=== PATIENT | female | born 1995 | race African-American/Black ===

== ENCOUNTER 2019-05-31 04:00 | Inpatient (IN) ==
[2019-05-31] MEDS ORDERED: *HR* Nalbuphine 10 MG/ML AMPUL IVP PRN (04:56)
[2019-05-31] MEDS ORDERED: Metoclopramide 10 MG/2 ML VIAL IVP PRN (04:56)
[2019-05-31] MEDS ORDERED: Lidocaine 1% 20 ML MDV INFILT PRN (04:56)
[2019-05-31] MEDS ORDERED: Famotidine 20 MG/2 ML VIAL IVP PRN (04:56)
[2019-05-31] MEDS ORDERED: Penicillin G Potassium 5,000,000 UNIT in 0.9 % Sodium Chloride Mini Bag 100 ML IVPB ONE (04:56)
[2019-05-31] MEDS ORDERED: Ondansetron 4 MG/2 ML VIAL IVP PRN (04:56)
[2019-05-31] MEDS ORDERED: Naloxone 0.4 MG/ML INJ IVP PRN (04:56)
[2019-05-31] MEDS ORDERED: Oxytocin 20 units/ LR 1000 mL 20 UNIT/1,000 ML BAG IVC SCH (05:00)
[2019-05-31] MEDS ORDERED: miSOPROStoL 25 MCG TABLET PO PRN (05:29)
[2019-05-31 05:31] LABS: Basophils % 0.2 %; Eosinophils # 0.2 K/mcL (0.0-0.6); Eosinophils % 1.8 %; Hematocrit 38.5 % (35.3-44.9); Hemoglobin 13.1 g/dL (11.5-15.4); Immature Granulocytes % 0.4 % (0-4); Lymphocytes % 20.6 %; Mean Corpuscular Hemoglobin 29.8 pg (28.0-33.3); Mean Corpuscular Volume 87.7 fL (83.0-100.0); Mean Platelet Volume 11.6 fL (9.4-12.4); Monocytes # 0.8 K/mcL (0.0-1.3); Monocytes % 8.7 %; Neutrophils # 6.5 K/mcL (1.6-8.9); Platelet Count 197 K/mcL (140-400); Red Blood Count 4.39 M/mcL (3.82-4.97); Red Cell Distribution Width 14.2 % (11.5-14.5); Segmented Neutrophils % 68.3 %; White Blood Count 9.5 K/mcL (4.3-11.1)
[2019-05-31 05:41] LABS: Amphetamine Screen,Urine Negative ng/mL (Cutoff=1000); Barbiturate Screen,Urine Negative ng/mL (Cutoff=200); Benzodiazepines Screen,Urine Negative ng/mL (Cutoff=200); Cannabinoid Screen,Urine Negative ng/mL (Cutoff = 50); Cocaine Screen,Urine Negative ng/mL (Cutoff= 300); Opiate Screen,Urine Negative ng/mL (Cutoff=300); Phencyclidine Screen,Urine Negative ng/mL (Cutoff=25)
[2019-05-31] MEDS: Ringers Solution, Lactated 1,000 ML IVC SCH ×3 (05:56→18:45)
[2019-05-31] MEDS: Penicillin G Potassium 2,500,000 UNIT in 0.9 % Sodium Chloride 100 ML IVPB SCH ×3 (10:23→18:45)
[2019-05-31] MEDS ORDERED: Ropivacaine/PF 0.2% 20 ML VIAL EP ONE (15:50)
[2019-05-31] MEDS ORDERED: *HR* FentaNYL (PF) 100 MCG/2 ML VIAL EP ONE (15:50)
[2019-05-31] MEDS ORDERED: Epidural Premix (fent/bupiv) 110 ML EP ONE (15:59)
[2019-05-31] MEDS: Epidural Premix (fent/bupiv) 110 ML EP SCH (23:31)
[2019-05-31] MEDS ORDERED: Acetaminophen 325 MG TABLET PO ONE (23:34)
[2019-06-01] MEDS ORDERED: MetroNIDAZOLE 500 MG/100 ML 500 MG/100 ML BAG IVPB ONE (02:15)
[2019-06-01] MEDS ORDERED: ceFAZolin 2,000 MG in Water for inj. (sterile) 20 ML IVP ONE (02:15)
[2019-06-01] MEDS ORDERED: Acetaminophen IV 1,000 MG/100 ML INFUS..BTL IVPB ONE (02:16)
[2019-06-01] MEDS ORDERED: Ondansetron 4 MG/2 ML VIAL IVP PRN ×2 (02:16→07:14)
[2019-06-01] MEDS ORDERED: *HR* HYDROmorphone (PF) 1 MG/ML SYRINGE IVP PRN (02:16)
[2019-06-01] MEDS ORDERED: *HR* Oxytocin 10 UNIT/ML VIAL IM ONE (02:26)
[2019-06-01] MEDS ORDERED: *HR* Morphine Sulfate/PF 10 MG/10 ML AMPUL ONE (02:55)
[2019-06-01] MEDS ORDERED: Metoclopramide 10 MG/2 ML VIAL IVP PRN (07:14)
[2019-06-01] MEDS ORDERED: Simethicone 80 MG TAB.CHEW PO PRN (07:14)
[2019-06-01] MEDS ORDERED: Sennosides 8.6 MG TABLET PO PRN (07:14)
[2019-06-01] MEDS: Oxytocin 20 units/ LR 1000 mL 20 UNIT/1,000 ML BAG IVC SCH ×2 (07:53→12:46)
[2019-06-01] MEDS: Prenatal Vit/FA 1 EACH TABLET PO SCH (08:30)
[2019-06-01] MEDS: metroNIDAZOLE 500 MG TABLET PO SCH ×3 (08:30→20:20)
[2019-06-01] MEDS: ceFAZolin 2,000 MG in Water for inj. (sterile) 10 ML IVP SCH ×2 (08:31→14:54)
[2019-06-01] MEDS: Ibuprofen 600 MG TABLET PO PRN ×3 (08:35→22:10)
[2019-06-01] MEDS: Ringers Solution, Lactated 1,000 ML IVC SCH (12:46)
[2019-06-01] MEDS: Epidural Premix (fent/bupiv) 110 ML EP SCH (12:47)
[2019-06-01] MEDS: Penicillin G Potassium 2,500,000 UNIT in 0.9 % Sodium Chloride 100 ML IVPB SCH (12:47)
[2019-06-01] MEDS: *HR* OxyCODONE/APAP 5/325 TABLET PO PRN (20:19)
[2019-06-02] MEDS: ceFAZolin 2,000 MG in Water for inj. (sterile) 10 ML IVP SCH (00:32)
[2019-06-02] MEDS: Ibuprofen 600 MG TABLET PO PRN ×2 (04:18→18:10)
[2019-06-02 07:09] LABS: Basophils % 0.2 %; Eosinophils # 0.3 K/mcL (0.0-0.6); Eosinophils % 2.4 %; Hematocrit 29.6 % (35.3-44.9); Immature Granulocytes % 0.4 % (0-4); Lymphocytes # 1.9 K/mcL (0.6-4.6); Lymphocytes % 16.1 %; Mean Corpuscular HGB Conc 33.4 g/dL (31.6-35.5); Mean Corpuscular Hemoglobin 29.6 pg (28.0-33.3); Mean Corpuscular Volume 88.4 fL (83.0-100.0); Mean Platelet Volume 11.6 fL (9.4-12.4); Monocytes # 0.9 K/mcL (0.0-1.3); Monocytes % 7.6 %; Neutrophils # 8.5 K/mcL (1.6-8.9); Platelet Count 163 K/mcL (140-400); Red Blood Count 3.35 M/mcL (3.82-4.97); Red Cell Distribution Width 14.2 % (11.5-14.5); Segmented Neutrophils % 73.3 %; White Blood Count 11.6 K/mcL (4.3-11.1)
[2019-06-02 07:13] LABS: Hemoglobin 9.9 g/dL (11.5-15.4)
[2019-06-02] MEDS: metroNIDAZOLE 500 MG TABLET PO SCH ×3 (10:39→19:56)
[2019-06-02] MEDS: Prenatal Vit/FA 1 EACH TABLET PO SCH (10:40)
[2019-06-02] MEDS: *HR* OxyCODONE/APAP 5/325 TABLET PO PRN ×2 (13:53→19:55)
[2019-06-03] MEDS: Ibuprofen 600 MG TABLET PO PRN ×2 (02:32→10:02)
[2019-06-03 08:08] VITALS: BP 127/71
[2019-06-03] MEDS: Prenatal Vit/FA 1 EACH TABLET PO SCH (10:02)
== END 2019-06-03 11:30 | disposition home or self-care (01) | DRG 787 ==
LOC: 1NENULAB 04:09 → 1NENUOBS 06-01 06:25
PROVIDERS: ADMIT Obstetrics & Gynecology; ATTEND Student in an Organized Health Care Education/Training Program

== ENCOUNTER 2021-12-30 05:44 | Inpatient (IN) ==
[2021-12-30] MEDS ORDERED: Metoclopramide 10 MG/2 ML VIAL IVP ONE (05:50)
[2021-12-30] MEDS ORDERED: Famotidine 20 MG/2 ML VIAL IVP ONE (05:50)
[2021-12-30] MEDS ORDERED: Ringers Solution, Lactated 1,000 ML IVC ONE (05:50)
[2021-12-30] MEDS ORDERED: CeFAZolin 2,000 MG/120 ML BAG IVPB ONE (05:50)
[2021-12-30 06:39] LABS: Basophils % 0.2 %; Eosinophils # 0.2 K/mcL (0.0-0.6); Eosinophils % 2.5 %; Hematocrit 38.9 % (35.3-44.9); Hemoglobin 12.6 g/dL (11.5-15.4); Immature Granulocytes % 0.6 % (0-4); Lymphocytes # 2.5 K/mcL (0.6-4.6); Lymphocytes % 28.7 %; Mean Corpuscular HGB Conc 32.4 g/dL (31.6-35.5); Mean Corpuscular Volume 89.4 fL (83.0-100.0); Mean Platelet Volume 10.9 fL (9.4-12.4); Monocytes # 0.8 K/mcL (0.0-1.3); Monocytes % 8.9 %; Neutrophils # 5.2 K/mcL (1.6-8.9); Platelet Count 178 K/mcL (140-400); Red Blood Count 4.35 M/mcL (3.82-4.97); Red Cell Distribution Width 14.4 % (11.5-14.5); Segmented Neutrophils % 59.1 %; White Blood Count 8.8 K/mcL (4.3-11.1)
[2021-12-30] MEDS ORDERED: Ondansetron 4 MG/2 ML VIAL IVP PRN ×2 (06:44→12:20)
[2021-12-30] MEDS ORDERED: *HR* Labetalol 20 MG/4 ML SYRINGE IVP PRN (06:44)
[2021-12-30] MEDS ORDERED: *HR* HYDROmorphone PF 0.5 MG/0.5 ML SYRINGE IVP PRN (06:44)
[2021-12-30] MEDS ORDERED: *HR* Midazolam HCl 2 MG/2 ML VIAL ONE (07:08)
[2021-12-30] MEDS ORDERED: *HR* FentaNYL (PF) 100 MCG/2 ML VIAL ONE (07:08)
[2021-12-30] MEDS ORDERED: *HR* HYDROMORPHONE 2 MG/ML VIAL ONE (07:08)
[2021-12-30] MEDS ORDERED: EPHEDrine 50 MG/ML VIAL ONE (07:08)
[2021-12-30] MEDS ORDERED: Acetaminophen IV 1,000 MG/100 ML BAG IVPB ONE (07:09)
[2021-12-30] MEDS ORDERED: Ringers Solution, Lactated 1,000 ML ONE (07:09)
[2021-12-30] MEDS ORDERED: *HR* Phenylephrine 10 MG/ML VIAL ONE (07:11)
[2021-12-30] MEDS ORDERED: Ondansetron 4 MG/2 ML VIAL ONE (07:11)
[2021-12-30] MEDS ORDERED: *HR* Oxytocin 10 UNIT/ML VIAL ONE (07:19)
[2021-12-30] MEDS ORDERED: Ketorolac 30 MG/ML VIAL ONE (07:19)
[2021-12-30] MEDS ORDERED: Ringers Solution, Lactated 1,000 ML IVC SCH (07:30)
[2021-12-30] MEDS ORDERED: 0.9 % Sodium Chloride 2,000 ML ONE (07:56)
[2021-12-30] MEDS ORDERED: Oxytocin 30 UNIT/503 ML BAG IVC ONE (08:11)
[2021-12-30] MEDS ORDERED: Promethazine 6.25 MG in Water for inj. (sterile) 20 ML IVPB PRN (08:17)
[2021-12-30 09:55] LABS: Amphetamine Screen,Urine Negative ng/mL (Cutoff=1000); Barbiturate Screen,Urine Negative ng/mL (Cutoff=200); Benzodiazepines Screen,Urine Negative ng/mL (Cutoff=200); Cannabinoid Screen,Urine Negative ng/mL (Cutoff = 50); Cocaine Screen,Urine Negative ng/mL (Cutoff= 300); Opiate Screen,Urine Negative ng/mL (Cutoff=300); Phencyclidine Screen,Urine Negative ng/mL (Cutoff=25)
[2021-12-30] MEDS ORDERED: *HR* OxyCODONE Immed Rel 5 MG TABLET PO PRN (12:20)
[2021-12-30] MEDS ORDERED: Prenatal Vit/FA 1 EACH TABLET PO SCH (12:20)
[2021-12-30] MEDS ORDERED: Simethicone 80 MG TAB.CHEW PO PRN (12:20)
[2021-12-30] MEDS ORDERED: NON-FORMULARY MEDICATION 1 EACH EACH (Prenatal Vit/Fa [Prenatal Vit/Fa] 1 EACH Tablet) PO SCH (12:20)
[2021-12-30] MEDS ORDERED: Metoclopramide 10 MG/2 ML VIAL IVP PRN (12:20)
[2021-12-30] MEDS ORDERED: Oxytocin 30 UNIT/503 ML BAG IVC SCH (12:20)
[2021-12-30] MEDS ORDERED: CeFAZolin 2,000 MG/120 ML BAG IVPB SCH (16:00)
[2021-12-30] MEDS: Acetaminophen 325 MG TABLET PO SCH (16:01)
[2021-12-30] MEDS: metroNIDAZOLE 500 MG TABLET PO SCH ×2 (16:01→20:34)
[2021-12-30] MEDS: Ibuprofen 600 MG TABLET PO SCH (16:01)
[2021-12-31 00:44] VITALS: O2SAT 97
[2021-12-31] MEDS: CeFAZolin 2,000 MG/120 ML BAG IVPB SCH ×2 (03:59→12:06)
[2021-12-31 05:36] LABS: Basophils % 0.2 %; Eosinophils # 0.1 K/mcL (0.0-0.6); Eosinophils % 1.1 %; Hematocrit 34.9 % (35.3-44.9); Hemoglobin 11.1 g/dL (11.5-15.4); Immature Granulocytes % 0.6 % (0-4); Lymphocytes # 2.3 K/mcL (0.6-4.6); Lymphocytes % 18.6 %; Mean Corpuscular HGB Conc 31.8 g/dL (31.6-35.5); Mean Corpuscular Hemoglobin 28.2 pg (28.0-33.3); Mean Corpuscular Volume 88.8 fL (83.0-100.0); Mean Platelet Volume 11.1 fL (9.4-12.4); Monocytes % 8.2 %; Neutrophils # 8.8 K/mcL (1.6-8.9); Platelet Count 189 K/mcL (140-400); Red Blood Count 3.93 M/mcL (3.82-4.97); Segmented Neutrophils % 71.3 %; White Blood Count 12.4 K/mcL (4.3-11.1)
[2021-12-31 08:13] VITALS: BP 108/70; PULSE 105; TEMP 98.1
[2021-12-31] MEDS: Ibuprofen 600 MG TABLET PO SCH (09:58)
[2021-12-31] MEDS: Acetaminophen 325 MG TABLET PO SCH (09:58)
[2021-12-31] MEDS: metroNIDAZOLE 500 MG TABLET PO SCH (09:58)
== END 2021-12-31 16:50 | disposition home or self-care (01) | DRG 788 ==
LOC: 1NENULAB 05:44 → 1NENUOBS 11:58
PROVIDERS: ADMIT Obstetrics & Gynecology; ATTEND Obstetrics & Gynecology